=== PATIENT | female | born 1970 | race Caucasian/White ===

== ENCOUNTER 2016-11-24 18:39 | Emergency (ER) | payer OTHER ==
[2016-11-24 18:43] VITALS: BP 108/79; PULSE 83; RESP 16; TEMP 98.1; O2SAT 96
[2016-11-24] MEDS ORDERED: SKIN ADHESIVE (DERMABOND) 1 EACH TP ONE (18:53)
[2016-11-24] MEDS ORDERED: ER GLUE 1 EA MISC ONE (18:53)
--- NOTE | 2016-11-24 18:56 | EDPHY ---
H & P Time Seen by Provider: 11/24/16 18:47 HPI/ROS: CHIEF COMPLAINT: Left eyelid laceration HISTORY OF PRESENT ILLNESS: Patient hit herself in the head with a tennis racquet accidentally about an hour and half ago playing in a match. She did finish that and win but presents for evaluation. No loss of consciousness, no double vision, no visual symptoms. REVIEW OF SYSTEMS: No headache PAST MEDICAL HISTORY: Negative, tetanus up-to-date General Appearance: Alert and conversant, cooperative. Normal speech, alert and ambulatory, extraocular motion intact. Pupils equal round reactive. No facial bony tenderness or crepitus. 1 cm superficial laceration just below the left eyebrow on the left eyelid. Well approximated, no tissue loss. Emergency Department course/MDM: Options discussed with the patient including sutures, skin glue, secondary intention. We decided that wound adhesive would be the optimal solution. Procedure: Laceration repair. Verbal consent was obtained from the patient. The 1 cm laceration on the left eyelid was clean with standard emergency department protocol, and explored. There were no deep structures involved. No foreign body found. The wound was repaired with wound adhesive. The wound repair was simple. Excellent hemostasis was obtained. Wound care instructions were discussed and the patient was warned regarding scarring. The procedure was performed by myself. Smoking Status: Never smoked Constitutional: Initial Vital Signs Temperature (C) 36.7 C 11/24/16 18:41 Heart Rate 83 11/24/16 18:41 Respiratory Rate 16 11/24/16 18:41 Blood Pressure 108/79 11/24/16 18:41 O2 Sat (%) 96 11/24/16 18:41 O2 Delivery Mode Room Air Allergies/Adverse Reactions: No Known Allergies Allergy (Unverified 11/24/16 18:41) Home Medications: Medication Instructions Recorded NK [No Known Home Meds] 11/24/16 MDM/Departure - MDM Medications Given: Discontinued Medications Miscellaneous Medication (Misc Med) 1 ea MISC EDNOW ONE Stop: 11/24/16 18:54 Last Admin: 11/24/16 18:55 Dose: 1 ea - Depart Disposition: Home, Routine, Self-Care Clinical Impression: Eyelid laceration, left Qualifiers: Encounter type: initial encounter Qualified Code(s): S01.112A - Laceration without foreign body of left eyelid and periocular area, initial encounter Condition: Good Instructions: Skin Adhesive Care (ED) Referrals: Tano Andrews MD [Primary Care Provider] - As per Instructions
== END 2016-11-24 19:14 | disposition home or self-care (01) ==
PROC: 08QPXZZ Repair Left Upper Eyelid, External Approach (ICD-10-PCS; principal; 2016-11-24)
DX: S01.112A Laceration without foreign body of left eyelid and periocular area, initial encounter (principal); W22.8XXA Striking against or struck by other objects, initial encounter; Y93.73 Activity, racquet and hand sports

== ENCOUNTER → 2017-07-04 | Outpatient (CLI) | payer OTHER | LOC: BMCIMAGING 13:00 | PROVIDERS: ATTEND Internal Medicine | DX: Z12.31 Encounter for screening mammogram for malignant neoplasm of breast (principal); Z80.3 Family history of malignant neoplasm of breast ==

== ENCOUNTER → 2018-07-15 | Outpatient (CLI) | payer OTHER | LOC: BMCIMAGING 08:58 | PROVIDERS: ATTEND Internal Medicine | DX: Z12.31 Encounter for screening mammogram for malignant neoplasm of breast (principal) ==